=== PATIENT | male | born 1985 | race Caucasian/White ===

== ENCOUNTER 2018-06-26 09:08 | Outpatient (RCR) | payer OTHER ==
[~2018-06-26 09:08] MED LIST: CEPHALEXIN500 M1 PO; NO HOME MEDICATIONS
== END 2018-09-19 | disposition home or self-care (01) ==
LOC: WSOH
DX: S76.311A Strain of muscle, fascia and tendon of the posterior muscle group at thigh level, right thigh, initial encounter (principal); M79.661 Pain in right lower leg; S09.90XA Unspecified injury of head, initial encounter; D64.9 Anemia, unspecified; W00.0XXA Fall on same level due to ice and snow, initial encounter; Y92.59 Other trade areas as the place of occurrence of the external cause; Y99.0 Civilian activity done for income or pay; Z79.01 Long term (current) use of anticoagulants; Z79.899 Other long term (current) drug therapy
CPT/HCPCS: 24091; A6549

== ENCOUNTER 2020-02-10 23:33 | Emergency (ER) | payer BC ==
[~2020-02-10] VITALS: Ht 185.4 cm; Wt 110.5 kg
[2020-02-10 23:33] VITALS: TEMP 98.2
[2020-02-10 23:45] LABS: BASO # 0.1 (0.0-0.2); BASO % 0.7 % (0.0-2.0); EOS # 0.6 (0.0-0.7); EOS % 5.7 % (0-4.0); GRAN # 5.5 (1.4-6.5); GRAN % 51.5 % (42.2-75.2); HEMATOCRIT 48.4 % (42.0-52.0); HEMOGLOBIN 16.4 g/dl (13.5-18.0); LYMPH # 3.6 (1.2-3.4); LYMPH % 33.9 % (20.0-51.0); MEAN CELL VOLUME 86 fl (80.0-100.0); MEAN CORPUSCULAR HEMOGLOBIN 29 pg (27.0-31.0); MEAN CORPUSCULAR HGB CONC 34 g/dl (33.0-37.0); MEAN PLATELET VOLUME 9.8 fl (7.4-10.4); MONO # 0.8 (0.1-0.6); MONO % 7.8 % (1.7-9.3); PLATELET COUNT 311 K/mm3 (130-400); RED BLOOD COUNT 5.63 M/mm3 (4.20-5.60)
[2020-02-10 23:55] LABS: ALANINE AMINOTRANSFERASE 22 U/L (4-49); ALBUMIN 4.4 gm/dL (3.5-5.0); ALKALINE PHOSPHATASE 61 U/L (50-136); ANION GAP 9 mmol/L (7-16); AST,SGOT 20 U/L (15-37); BILIRUBIN,TOTAL 0.7 mg/dL (0.0-1.0); BLOOD UREA NITROGEN 12 mg/dL (9-20); CALCIUM 9.5 mg/dL (8.4-10.2); CARBON DIOXIDE 24 mmol/L (22-30); CHLORIDE 106 mmol/L (98-107); CREATININE, serum 0.98 (0.66-1.25); GLUCOSE 93 mg/dL (74-106); POTASSIUM 4.1 mmol/L (3.4-5.0); SODIUM 139 mmol/L (137-145); TOTAL PROTEIN 7.8 gm/dL (6.4-8.2)
[2020-02-11 00:08] LABS: TROPONIN-I < 0.012 ng/mL (0.000-0.035)
[2020-02-11 01:59] VITALS: BP 132/74; PULSE 74
== END 2020-02-11 02:10 | disposition short-term general hospital (02) ==
LOC: COL.ER 23:33
PROVIDERS: Nurse Practitioner Primary Care
DX: R55 Syncope and collapse (principal); R00.1 Bradycardia, unspecified; F17.210 Nicotine dependence, cigarettes, uncomplicated
CPT/HCPCS: J2270; J7030; Q9967